=== PATIENT | male | born 1990 | race Caucasian/White ===

== ENCOUNTER 2024-02-04 17:43 | Emergency (ER) | payer SELFPAY ==
[2024-02-04 17:44] VITALS: BP 145/91; PULSE 80; PULSE 87; RESP 16; TEMP 36.9; O2SAT 100; BMI 19.3
--- NOTE | 2024-02-04 18:58 | EDS_ITS ---
HPI History of Present Illness Chief Complaint: Chest Other Detail of Chief Complaint: Multiple symptoms Informant: patient Onset/Context/Timing Onset: Weeks Context: Sudden Onset Timing: Continuous and Intermittent Quality: HPI Location: Complains of bilateral anterior chest pain Current Severity: Mild Maximum Severity: Moderate Worsened by: Feels like he cannot get a deep breath. Relieved by: Nothing Associated Symptoms Associated Symptoms: Weight loss, night sweats Narrative Narrative: Patient is a 33-year-old male who admits to marijuana use. Denies drug use. He is concerned because of bilateral chest pain. This been going on for approximately 3 weeks.'s been intermittent. There is no radiation. There is no nausea vomiting or diarrhea. There is no shortness of breath. There is no history of VTE. There is no history of recent travel, leg pain, swelling discoloration. He has no history of pneumothorax. Patient stated that his brother's arm with lower history was doing drugs because he looks thin. Prior similar symptoms: No Recent Illness/Hospitalization: No PFSH PFSH Medical History no medical history no medical history Home Medications NK 02/04/24 [History Last Taken Unknown] Allergy/AdvReac Type Severity Reaction Status Date / Time No Known Allergies Allergy Verified 02/04/24 17:50 Surgical History no surgical history no surgical history Social History (Updated 02/04/24 @ 19:[address] Yaw Larsen MD) household members: none Smoking Status: Current every day smoker ROS ROS ED Constitutional Constitutional ED: Reports sweats and weight loss; Denies chills, fever(s) or subjective Eyes Eyes: Denies blurry vision, change in vision or diplopia ENT ENT ED: Denies ear pain, rhinorrhea or sore throat Cardiovascular Cardiovascular: Reports chest pain; Denies orthopnea, palpitations, paroxysmal nocturnal dyspnea or racing heartbeat Respiratory/Chest Respiratory/Chest: Denies cough, dyspnea, dyspnea on exertion, orthopnea, paroxysmal nocturnal dyspnea or sputum Gastrointestinal Gastrointestinal: Denies abdominal pain, constipation, diarrhea, melena, nausea or vomiting Genitourinary Genitourinary ED: Denies dysuria, hematuria or urinary frequency Musculoskeletal Musculoskeletal: Denies back pain, myalgias or neck pain Integumentary Denies rash Neurologic Neurologic: Denies headache(s) or weakness Endocrine Endocrinology: Denies cold intolerance or heat intolerance Hematologic/Lymphatic Hematologic/Lymphatic: Reports systems reviewed and no addt'l complaints, except as documented EXAM Physical Exam Const Vital Signs: 02/04/24 17:44 02/04/24 17:44 02/04/24 18:43 Temperature 98.4 F 98.4 F Temperature Source Temporal Temporal Pulse Rate 87 80 Respiratory Rate 16 16 Respiratory Effort Normal Non-Labored Blood Pressure 145/91 H 145/91 H Blood Pressure Mean 109 109 Pulse Ox 100 100 Oxygen Delivery Method Room Air Room Air Positive well nourished and well developed Constitutional Narrative: Patient is thin. States has always been thin he does admit/endorse weight loss General Appearance ED: well developed, NAD and pallor; Negative for cyanotic or diaphoretic HEENT Reports moist mucous membranes HEENT Narrative: Head is atraumatic normocephalic. Ears normal. Nares patent. Posterior pharynx normal. Eyes PERRL and EOMs intact bilaterally General Eye ED: Negative for pale conjunctiva or scleral icterus Neck no lymphadenopathy, supple and no JVD Chest Wall inspection of chest normal and palpation of chest normal Resp normal respiratory effort and clear to auscultation bilaterally Cardio regular rate, regular rhythm, S1 normal heart sound, S2 normal heart sound and no murmurs GI normal to inspection, nondistended, normoactive bowel sounds, non-tender, non- distended and no masses; Negative for hepatosplenomegaly Back/Spine no CVA tenderness Thoracic Spine / Upper Back: Negative for thoracic spinal tenderness Lumbar Spine / Lower Back: Negative for lumbar spinal tenderness Extremity normal to inspection General Extremety ED: Negative for edema or tenderness General Extremity: Negative for edema Neuro oriented x3, CN's II-XII intact bilaterally and no sensory deficits noted Sensorium / Orientation: alert Sensory Exam: sensory level loss detected Psych mental status grossly normal Skin no rashes or lesions noted, no wounds and skin turgor normal General Skin Exam: elasticity normal and pallor; Negative for jaundice MDM MDM MDM Narrative Medical decision making narrative: With patient not having severe elevated blood pressure ripping chest back pain doubt dissection. Fact that he had weight loss night sweats and vague chest discomfort concern for possible malignancy. Will obtain CBC to assess for anemia and white count. Competence of metabolic panel to assess alkaline phosphatase and calcium as well as electrolytes. Chest x-ray because of chest pain and determine if there is a mass noted. ESR was obtained. This is markedly elevated due to consider autoimmune disorder versus malignancy doubt infectious cause. Lab Data Attestation: I reviewed the patient's lab results. Lab results narrative: White count is slightly elevated 14.2 thousand. There is a slight shift. Patient has mild anemia with an H&H 12.5 and 30.5 with normal indices. Comprehensive metabolic panel is unremarkable. ESR is slightly elevated 33. Labs: Laboratory Results - last 24 hr 02/04/24 19:12 WBC 14.2 H RBC 4.30 L Hgb 12.5 L Hct 38.5 L MCV 89.5 MCH 29.1 MCHC 32.5 RDW Std Deviation 44.2 H RDW Coeff of John 13.6 Plt Count 438 MPV 8.9 Immature Gran % (Auto) 0.400 Neut % (Auto) 79.2 H Lymph % (Auto) 13.3 L [place] % (Auto) 5.6 Eos % (Auto) 0.8 Baso % (Auto) 0.7 Absolute Neuts (auto) 11.2 H Absolute Lymphs (auto) 1.89 Nucleated RBC % 0 ESR 33 H Sodium 136 Potassium 4.1 Chloride 107 Carbon Dioxide 30.0 Anion Gap -1 L BUN 8 Creatinine 0.77 Estim Creat Clear Calc 127.05 Est GFR (MDRD) Af Amer 148 Est GFR (MDRD) Non-Af 122 BUN/Creatinine Ratio 10.3 Glucose 108 H Calcium 9.3 Total Bilirubin 0.30 AST 10 L ALT 17 Alkaline Phosphatase 109 Total Protein 8.1 Albumin 3.4 Globulin 4.7 H Albumin/Globulin Ratio 0.7 L Discharge Plan Triage Chief Complaint: Chest Other ED Provider: Yaw Larsen Dx/Rx/DC Orders Clinical Impression: Night sweats, Chest pain in adult, Elevated blood-pressure reading, without diagnosis of hypertension, Unexplained weight loss Instructions: ED Chest Pain, Noncardiac, ED Hypertension, To Be Confirmed Prescriptions: No Action NK Primary Care Provider: Care Physician,No Primary Referrals: Cesia Rios [Non-Staff] - 1 Week [facility] Doctor,Out of [Non-Staff] - Disposition Disposition: Home, Self Care
[2024-02-04 19:23] LABS: Absolute Lymphocyte Count 1.89 X10^3/uL (0.83-4.51); Absolute Neutrophil Count 11.2 X10^3/uL (2.0-7.7); Basophil% 0.7 % (0-1); Eosinophil# 0.11 X10^3/uL; Eosinophils% 0.8 % (0-5); Hematocrit 38.5 % (40-54); Hemoglobin 12.5 g/dL (13.0-16.5); Lymphocyte # 1.89 X10^3/ul (0.83-4.51); Lymphocyte % 13.3 % (19-41); Mean Corp Hgb Conc 32.5 g/dL (32-36); Mean Corpuscular Hgb 29.1 pg (27.0-32.0); Mean Corpuscular Volume 89.5 fL (80-94); Mean Platelet Vol. 8.9 fl (6.2-12.0); Monocyte# 0.79 X10^3/uL; Monocyte% 5.6 % (0-10); NRBC Flagged by Analyzer 0 % (0-5); Neutrophil # 11.23 X10^3/uL (2.7-7.7); Neutrophil % 79.2 % (47-70); Platelet Count 438 K/mm3 (150-450); RBC Distribution Width CV 13.6 % (11.6-14.6); RBC Distribution Width SD 44.2 fl (35.1-43.9); White Blood Count 14.2 K/mm3 (4.4-11.0)
--- NOTE | 2024-02-04 19:30 | RAD_ITS ---
STUDY: X-RAY CHEST REASON FOR EXAM: Male, 33 years old. Chest pain, night sweats, SOB, weight loss TECHNIQUE: PA and lateral COMPARISON: None. FINDINGS: The lungs are clear and expanded. There is no demonstrated pleural abnormality. Normal size heart. Normal mediastinum and jesus. Normal visualized pulmonary arteries. Normal visualized aortic arch and descending thoracic aorta. There appears to be very subtle convexity of the aorta pulmonary window possibly representing an enlarged node Normal visualized thoracic spine. Normal visualized ribs, clavicles, and shoulders. There is no demonstrated abnormality of the visualized soft tissue structures of the upper abdomen. RAD/Chest PA and Lateral IMPRESSION: No acute cardiopulmonary pathology. Cannot definitively exclude subtle left suprahilar lymph node. CT would be useful for more definitive evaluation Electronically Signed: Rayo Banks MD at 20:03 EDT ,
[2024-02-04 19:36] LABS: Erythrocyte Sedimentation Rate 33 mm/hr (0-20)
[2024-02-04 19:41] LABS: ALB/GLOB Ratio 0.7 RATIO (0.9-2.4); AST(SGOT) 10 U/L (15-37); Alanine Aminotransfer ALT/SGPT 17 U/L (16-61); Albumin, Serum 3.4 g/dL (3.2-5.0); Alkaline Phosphatase 109 U/L (45-117); Anion Gap -1 (5-15); BUN 8 mg/dL (7-18); BUN/Creat Ratio 10.3 RATIO (10-20); Calcium,Total 9.3 mg/dL (8.5-10.1); Chloride 107 mmol/L (98-107); Creatinine, Serum 0.77 mg/dL (0.70-1.30); EST Glomerular Filtration Rate 122 mL/min (>60); Est Glom Filt Rate - Afr Amer 148 mL/min (>60); Estimated Creatinine Clearance 127.05 ml/min; Globulin 4.7 g/dL (2.2-4.2); Glucose 108 mg/dL (74-106); Potassium 4.1 mmol/L (3.5-5.1); Protein, Total 8.1 g/dL (6.4-8.2); Sodium Level 136 mmol/L (136-145)
[2024-02-04 19:43] VITALS: BP 103/73; PULSE 86; RESP 16; O2SAT 98
[2024-02-04 20:26] VITALS: BP 111/61; PULSE 68; RESP 20; TEMP 37.2; O2SAT 99
== END 2024-02-04 20:27 | disposition home or self-care (01) ==
PROVIDERS: Emergency Provider Emergency Medicine; Visit Provider Emergency Medicine
DX: R07.9 Chest pain, unspecified (principal); R61 Generalized hyperhidrosis; R63.4 Abnormal weight loss; R03.0 Elevated blood-pressure reading, without diagnosis of hypertension; F17.200 Nicotine dependence, unspecified, uncomplicated
CPT/HCPCS: 71046; 80053; 85025; 85652; 99284; A4216

== ENCOUNTER → 2024-03-03 | Outpatient (CLI) | payer SELFPAY ==
[2024-03-03 12:10] LABS: Erythrocyte Sedimentation Rate 44 mm/hr (0-20)
[2024-03-03 12:12] LABS: Absolute Lymphocyte Count 3.37 X10^3/uL (0.83-4.51); Basophil# 0.15 X10^3/uL; Basophil% 0.9 % (0-1); Eosinophil# 0.25 X10^3/uL; Eosinophils% 1.5 % (0-5); Hematocrit 40.5 % (40-54); Hemoglobin 12.8 g/dL (13.0-16.5); Lymphocyte # 3.37 X10^3/ul (0.83-4.51); Mean Corp Hgb Conc 31.6 g/dL (32-36); Mean Corpuscular Hgb 28.7 pg (27.0-32.0); Mean Corpuscular Volume 90.8 fL (80-94); Monocyte# 1.02 X10^3/uL; NRBC Flagged by Analyzer 0 % (0-5); Neutrophil # 11.99 X10^3/uL (2.7-7.7); Platelet Count 529 K/mm3 (150-450); RBC Distribution Width SD 46.6 fl (35.1-43.9); Red Blood Count 4.46 M/mm3 (4.6-6.2); White Blood Count 16.9 K/mm3 (4.4-11.0)
[2024-03-03 12:21] LABS: Hemoglobin A1c 5.3 % (3.8-5.6)
[2024-03-03 12:28] LABS: ALB/GLOB Ratio 0.7 RATIO (0.9-2.4); AST(SGOT) 16 U/L (15-37); Alanine Aminotransfer ALT/SGPT 20 U/L (16-61); Albumin, Serum 3.4 g/dL (3.2-5.0); Alkaline Phosphatase 113 U/L (45-117); Anion Gap 5 (5-15); BUN 7 mg/dL (7-18); BUN/Creat Ratio 8.4 RATIO (10-20); Calcium,Total 9.8 mg/dL (8.5-10.1); Chloride 102 mmol/L (98-107); Creatinine, Serum 0.83 mg/dL (0.70-1.30); EST Glomerular Filtration Rate 112 mL/min (>60); Est Glom Filt Rate - Afr Amer 136 mL/min (>60); Ferritin 132 ng/mL (26-388); Globulin 5.1 g/dL (2.2-4.2); Glucose 114 mg/dL (74-106); Iron 21 ug/dL (65-175); Iron Binding Capacity,Total 283 ug/dL (250-450); PERCENT IRON SATURATION 7.4 % (15.0-55.0); Potassium 3.8 mmol/L (3.5-5.1); Protein, Total 8.5 g/dL (6.4-8.2); Rheumatoid Factor < 10.0 IU/mL (<15); Sodium Level 137 mmol/L (136-145); Thyroid Stim Hormone (TSH) 1.34 uIU/mL (0.358-3.74)
[2024-03-03 12:55] LABS: HIV - WCH Non-Reactive (Nonreactive); Vitamin B12 399 pg/mL (211-911)
[2024-03-04 15:08] LABS: Lyme Scn Total Ab w/Rflx Negative (Negative)
[2024-03-07 12:08] LABS: ANTINUCLEAR ANTIBODIES DIRECT Negative (Negative); Vitamin D 1,25-Dihydroxy 30.3 pg/mL (24.8-81.5)
== END | disposition home or self-care (01) ==
LOC: LAB 11:18
PROVIDERS: PCP Nurse Practitioner Family; Referring Provider Nurse Practitioner Family; Visit Provider Nurse Practitioner Family
DX: R63.4 Abnormal weight loss (principal); R61 Generalized hyperhidrosis; D64.9 Anemia, unspecified; M25.50 Pain in unspecified joint
CPT/HCPCS: 36415; 80053; 82607; 82652; 82728; 83036; 83540; 83550; 84443; 85025; 85652; 86038; 86140; 86431; 86618; 86703

== ENCOUNTER → 2024-06-14 | Outpatient (CLI) | payer MEDICAID, SELFPAY ==
--- NOTE | 2024-06-14 13:53 | CT_ITS ---
STUDY: CT CHEST WITH CONTRAST REASON FOR EXAM: Male, 33 years old. ABNORMAL WEIGHT LOSS. Left upper chest pain. Shortness of breath. RADIATION DOSAGE (If Supplied By Facility): CTDIvol = ( 10.31 ) mGy, DLP = ( 301.07 ) mGycm TECHNIQUE: Transaxial imaging was performed following intravenous administration of IV 100mL Isovue-300. Individualized dose optimization techniques were used for this CT. COMPARISON: No relevant priors. FINDINGS: CHEST The lungs are normal. There is no demonstrated pleural abnormality. Normal heart and pericardium. Soft tissue prominence seen in the anterior mediastinum suggestive of adenopathy. This extends into the base of the great vessels of the neck. Lymphadenopathy should be ruled out. Normal hilar regions. Normal unenhanced pulmonary arteries. Normal aorta arch and descending thoracic aorta. Normal osseous structures. There is no demonstrated abnormality of the visualized upper abdomen. CT/Chest WITH Contrast IMPRESSION: Mediastinal lymphadenopathy as described. Lymphoma should be ruled out. Electronically Signed: Chidi Maxwell MD at 15:07 EDT ,
== END | disposition home or self-care (01) ==
LOC: CT 13:50
PROVIDERS: Referring Provider Nurse Practitioner Family; Visit Provider Nurse Practitioner Family
DX: R63.4 Abnormal weight loss (principal); R61 Generalized hyperhidrosis; R93.89 Abnormal findings on diagnostic imaging of other specified body structures
CPT/HCPCS: 71260; Q9967

== ENCOUNTER → 2024-07-29 | Outpatient (CLI) | payer MEDICAID, SELFPAY ==
[2024-07-29] VITALS (12 sets, daily range): BP systolic 113–131; BP diastolic 51–73; PULSE 65–78; RESP 13–15; TEMP 36.6; O2SAT 97–100; BMI 20.7
--- NOTE | 2024-07-29 | IMM_PTH ---
PATIENT: ELROY COLVIN LOC: CT U#:[id number] AGE/SX: 33/M ROOM: RE07/29/[address]: Dr. Sorin Machado MD : 1990 BED: DIS: 07/29/2024 SPEC #: [id number] RECD: 08/01/24 10:39 STATUS: JESSICA REQ #: [id number] GRETCHEN: 07/29/24 00:[address]: Sorin Machado DEPT: IMMUNOHISTOCHEMISTRY RECD BY: Amos Cardenas ENTERED: 08/01/24 10:40 SP TYPE: IMMUNO OTHR DR: No Primary Care Phys Tissues: Lymph node, NOS Procedures: CD15 (add) CD20 (add) CD30 (add) CD45 (add) CD5 (add) CD79A (add) KI-67 (add) CD3 (initial) PHYSICIAN & INSTITUTION [place] [id number] SPECIMEN INFORMATION: Tissue Source: Lymph node biopsy Clinical Info: Lymphadenopathy Specimen Number: [id number] CPT code: 28758,12469i6 METHODOLOGY: Deparaffinized sections of prefer/formalin-fixed tissue or PAP/DQ stained slides are incubated with monoclonal/polyclonal antibodies/oligonucleotide probes. Localization is made via biotin free immunoperoxidase method. Appropriate controls are performed and reacted as expected. Results on target cell population are indicated in the following table: RESULTS: ANTIBODY / CLONE RESULT CD3 (PS1) negative * CD5 (SP10) negative * CD20 (L26) negative * CD45 (RP2/18) negative * CD79a (11E3) negative * CD15 (MMA) positive CD30 (Christopher-H2) positive Ki-67 (30-9) positive, low * Positive in background lymphocytes These tests were developed and their performance characteristics determined by [facility]. They may not have been cleared or approved by the U.S. Food and Drug Administration. The FDA has determined that such clearance or approval is not necessary. The above immunohistochemical/dualISH markers are ordered and reviewed by the Pathologist. INTERPRETATION: Left chest lymph node, CT guided core biopsy: Hodkgin lymphoma, nodular sclerosis type. See comment. COMMENT: Background lymphocytes are polytypic in nature. Case has been reviewed in consultation with Dr. Woodward who concurs with the above diagnosis. IDC:IVAN Machado 08/02/2024
[2024-07-29 08:58] LABS: Absolute Lymphocyte Count 2.61 X10^3/uL (0.83-4.51); Absolute Neutrophil Count 15.7 X10^3/uL (2.0-7.7); Basophil# 0.12 X10^3/uL; Basophil% 0.6 % (0-1); Eosinophil# 0.06 X10^3/uL; Eosinophils% 0.3 % (0-5); Hematocrit 41.1 % (40-54); Hemoglobin 13.3 g/dL (13.0-16.5); Lymphocyte # 2.61 X10^3/ul (0.83-4.51); Lymphocyte % 13.3 % (19-41); Mean Corp Hgb Conc 32.4 g/dL (32-36); Mean Corpuscular Hgb 28.6 pg (27.0-32.0); Mean Corpuscular Volume 88.4 fL (80-94); Mean Platelet Vol. 8.4 fl (6.2-12.0); Monocyte# 1.12 X10^3/uL; Monocyte% 5.7 % (0-10); NRBC Flagged by Analyzer 0 % (0-5); Neutrophil # 15.66 X10^3/uL (2.7-7.7); Neutrophil % 79.6 % (47-70); Platelet Count 493 K/mm3 (150-450); RBC Distribution Width CV 13.7 % (11.6-14.6); RBC Distribution Width SD 44.4 fl (35.1-43.9); Red Blood Count 4.65 M/mm3 (4.6-6.2); White Blood Count 19.7 K/mm3 (4.4-11.0)
[2024-07-29 09:12] LABS: International Normalized Ratio 1.1; Prothrombin Time (Protime)PT. 13.7 SECONDS (11.7-14.9)
[2024-07-29 09:13] LABS: Partial Thromboplast Time 27.9 Seconds (24.1-36.2)
[2024-07-29] MEDS: 0.9% Normal Saline (250mL Bag) 250 ML 15 ML IV (09:40)
[2024-07-29] MEDS: Midazolam 2 MG/2 ML Syringe IV ×3 (09:43→09:54)
[2024-07-29] MEDS: fentaNYL 100 MCG/2 ML Ampul IV (09:45)
[2024-07-29] MEDS: Lidocaine 2% (20 ml mdv) 20 ML Vial INFILT (09:55)
--- NOTE | 2024-07-29 10:00 | ASPIGT_PTH ---
PATIENT: ELROY COLVIN LOC: CT U#:[id number] AGE/SX: 33/M ROOM: RE07/29/[address]: Dr. Sorin Machado MD : 1990 BED: DIS: 07/29/2024 SPEC #: [id number] RECD: 07/29/24 10:30 STATUS: JESSICA DEREK #: [id number] GRETCHEN: 07/29/24 10:[address]: Sorin Machado DEPT: SURGICAL PATHOLOGY RECD BY: Ev Bradley ENTERED: 07/29/24 11:13 SP TYPE: ASP RAD OTHR DR: No Primary Care Phys Tissues: LYMPH NODE BIOPSY Procedures: FNA Specimen Adequacy Special Stain Group II Surgery Specimen Level IV Imprint (control) HEADER OPERATION: CT guided lymph node biopsy - left chest PRE-OP DIAGNOSIS: Lymphadenopathy TISSUE SUBMITTED: 18 gauge MICROSCOPIC DIAGNOSIS Midiastinal mass, CT guided core biopsy: Hodgkin lymphoma, nodular sclerosis type. See comment. SJ.mr 08/01/2024 COMMENT The specimen is evaluated at the time of biopsy by Dr. Diego. Immediate Evaluation = Adequate for evaluation. Immunohistochemistry ([id number]) supports the above diagnosis. Flow cytometry study from [facility] show no evidence of B-cell or T-cell lymphoma. Complete report is viewable in the patient's EMR. Case has been reviewed in consultation with Dr. Woodward who concurs with the above diagnosis. IDC:AM MICROSCOPIC DESCRIPTION Slides are reviewed. GROSS DESCRIPTION Received in fixative is one container labeled with the patient's name and designated Midiastinal mass. The specimen consists of multiple elongated fragments of bailon soft tissue measuring in aggregate 1.5 x 0.2 x 0.1cm. The entire specimen is submitted in one cassette. Two touch imprints are prepared at the time of core biopsy. One core is submitted for flow cytometric study. 07/29/2024 TC:0 CPT:28348,94989
--- NOTE | 2024-07-29 10:16 | PCM.OP.PRO ---
Procedure Report Date of Procedure: 07/29/24 Assessment & Plan Assessment/Plan (1) Mediastinal lymphadenopathy: PLAN: PROCEDURE: CT GUIDED CORE LYMPH NODE BIOPSY ORDERING PROVIDER: Dr. Machado INDICATION: Male, 33 years old. Enlarged thoracic lymph node PROVIDER: SANDHYA Elizalde CONSENT: Written informed consent was obtained having explained the risks, benefits and alternatives in detail with the patient who accepted the risks and agreed to proceed. Laboratory review and clinical assessment was performed. PRE-PROCEDURE SEDATION ASSESSMENT: Current history and physical dictated by referring physician and reviewed. No clinical changes since date of exam. Patient has a Mallampati Score of Class 1 and ASA Class of 2. PROCEDURAL SEDATION PROTOCOL: The Drugs used were: 3 mg Versed, IV, and 50 mcg Fentanyl, IV. The sedation time was: Starting at 9:43 AM and terminated at 10:06 AM. The procedural sedation protocol was independently monitored by the department nurse. RADIATION DOSAGE (If Supplied By Facility): CTDIvol = 15.97 mGy, DLP = 247.42 mGycm Individualized dose optimization techniques were used for this CT. TECHNIQUE The patient was placed in a supine position. A noncontrast CT was performed to localize the lesion in the thoracic chest. The skin surface was prepped with chlorhexidine and draped in a sterile fashion. 2% lidocaine was used for local anesthesia. Using CT guidance, an 18-gauge coaxial biopsy device was advanced to the periphery of the lesion. A total of 6 core specimens were obtained. Specimens were microscopically reviewed by pathology in the CT suite and placed in formalin solution, as well as RPMI. The biopsy needle was removed and a sterile dressing was applied to the biopsy site. The patient tolerated the procedure well without adverse event. A negative biopsy does not exclude malignancy. Further imaging or clinical followup based on patient condition and degree of clinical suspicion for malignancy. Suggest rebiopsy, if biopsy results do not match with clinical scenario. IMPRESSION: CT directed core needle biopsy of the thoracic lymph node using CT image guidance with image documentation as described. Pathology results are pending. Procedural Sedation protocol utilized with independent monitoring by the department nurse. Procedures Radiology Radiology CT Procedures: 67307 Biopsy Lymph Node/gland/etc Multi [facility] Codes Radiology Radiology CT Procedures: 04509-27 CT guidance parenchymal tissue
== END | disposition home or self-care (01) ==
LOC: CT 08:46
PROVIDERS: Referring Provider Internal Medicine Hematology & Oncology; Visit Provider Internal Medicine Hematology & Oncology
DX: C81.10 Nodular sclerosis Hodgkin lymphoma, unspecified site (principal)
CPT/HCPCS: 38505; 36415; 77012; 85025; 85610; 85730; 88172; 88305; 88313; 88341; 88342; 99156; J7050

== ENCOUNTER → 2024-08-10 | Outpatient (CLI) | payer MEDICAID, SELFPAY ==
--- NOTE | 2024-08-10 13:52 | ECHODONC_ITS ---
Reason For Study: Encounter for trheraputic drug level monitoring Procedure This was a 2D Doppler, Color Flow transthoracic echocardiogram. Myocardial strain analysis was performed in this exam to aid in the assessment of cardiac function. Exam performed in department. Left Ventricle Normal LV size. Left ventricular systolic function is normal. The left ventricular ejection fraction is 65 %. No regional wall motion abnormalities noted. Right Ventricle Normal RV size. Normal systolic function. Atria Normal left atrium. Normal right atrium. Mitral Valve Normal mitral valve. Tricuspid Valve Normal tricuspid valve. Aortic Valve Trisinus/trileaflet aortic valve. Pulmonic Valve Normal pulmonic valve. Great Vessels Normal aortic root. The pulmonary artery is normal size. Normal inferior vena cava. Pericardium/Pleural No pericardial effusion. MMode/2D Measurements & Calculations LVIDd: 5.3 cm IVSd: 0.71 cm Ao root diam: 2.8 cm LVIDs: 3.5 cm LVPWd: 0.86 cm RVDd: 3.4 cm FS: 34.1 % LAV(MOD-bp): 42.3 ml LVAd ap4: 32.2 cm2 LVAd ap2: 35.8 cm2 LAV(MOD-bp) Indexed: 21.9 ml/m2 LVLd ap4: 8.6 cm LVLd ap2: 9.4 cm LAV(MOD-sp2): 46.4 ml EDV(MOD-sp4): 99.0 ml EDV(MOD-sp2): 114.2 ml LAV(MOD-sp4): 34.5 ml EDV(sp4-el): 102.1 ml EDV(sp2-el): 115.5 ml LVAs ap4: 17.4 cm2 LVAs ap2: 17.4 cm2 LVLs ap4: 7.0 cm LVLs ap2: 7.0 cm ESV(MOD-sp4): 37.0 ml ESV(MOD-sp2): 36.9 ml ESV(sp4-el): 36.6 ml ESV(sp2-el): 36.5 ml EF(MOD-sp4): 62.6 % EF(MOD-sp2): 67.7 % EF(sp4-el): 64.1 % SV(MOD-sp4): 62.0 ml SV(MOD-sp2): 77.3 ml SV(sp4-el): 65.4 ml LA dimension(2D): 3.2 cm TAPSE: 2.9 cm LA A4 area: 14.2 cm2 Time Measurements MV dec time: 0.22 sec Doppler Measurements & Calculations MV E max [place]: 123.9 cm/sec Lat Peak E' [place]: 17.9 cm/sec Med Peak E' [place]: 16.2 cm/sec MV A max [place]: 50.1 cm/sec E/E' lat: 6.9 E/E' med: 7.7 MV E/A: 2.5 MV V2 max: 142.8 cm/sec MV P1/2t max [place]: 137.5 cm/sec Ao V2 max: 133.2 cm/sec MV max P.2 mmHg MV P1/2t: 70.0 msec Ao max P.1 mmHg MV V2 mean: 68.7 cm/sec MV dec slope: 575.0 cm/sec2 Ao V2 mean: 93.7 cm/sec MV mean P.3 mmHg Ao mean P.0 mmHg MV V2 VTI: 31.8 cm MVA(P1/2t): 3.1 cm2 Ao V2 VTI: 30.4 cm AV (velocity ratio): 0.83 LV V1 max: 119.5 cm/sec PA V2 max: 120.4 cm/sec LV V1 max P.7 mmHg PA V2 mean: 91.6 cm/sec LV V1 mean P.2 mmHg LV V1 mean: 84.4 cm/sec LV V1 VTI: 25.2 cm ECHO/ONC Echo Complete Interpretation Summary Normal LV size. Left ventricular systolic function is normal. The left ventricular ejection fraction is 65 %. The global longitudinal strain is normal. The global longitudinal strain = -20. 1 % (normal). Structurally normal valves. Ordering Physician: Radha Campbell Referring Physician: MIKE PCP Performed By: Evelyn Sauer, LEW, RVT
== END | disposition home or self-care (01) ==
LOC: CVS 13:51
PROVIDERS: Referring Provider Nurse Practitioner Family; Visit Provider Nurse Practitioner Family
DX: Z51.81 Encounter for therapeutic drug level monitoring (principal); C81.90 Hodgkin lymphoma, unspecified, unspecified site; Z79.899 Other long term (current) drug therapy
CPT/HCPCS: 93306; 93356

== ENCOUNTER 2024-08-18 17:08 | Outpatient (RCR) | payer MEDICAID, SELFPAY | END 2024-08-25 23:59 | LOC: NS 17:08 | PROVIDERS: Visit Provider Internal Medicine Hematology & Oncology | DX: Z71.3 Dietary counseling and surveillance (principal); C81.90 Hodgkin lymphoma, unspecified, unspecified site; R59.0 Localized enlarged lymph nodes; R68.89 Other general symptoms and signs; Z51.11 Encounter for antineoplastic chemotherapy | CPT/HCPCS: 97802 ==

== ENCOUNTER 2024-08-19 10:34 | Day surgery (SDC) | payer MEDICAID, SELFPAY ==
[2024-08-19] VITALS (8 sets, daily range): BP systolic 108–124; BP diastolic 63–96; PULSE 58–79; RESP 16–18; TEMP 36.2–37; O2SAT 97–99; BMI 20.2
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
[2024-08-19] MEDS: Cefazolin 2 GM in Syringe IV (12:00)
[2024-08-19] MEDS: Bupivacaine Mpf 0.5% 30 ML VIAL (12:34)
[2024-08-19] MEDS: Lidocaine 1% /Epi 1:100 (20ml) 20 ML Vial (12:35)
[2024-08-19] MEDS: 0.9% Normal Saline (Pres. free 10 ML Vial (12:36)
--- NOTE | 2024-08-19 12:50 | DCINST_ITS ---
Discharge Instructions Diet Discharge Diet: Light diet - advance as tolerated Activity Discharge Activity: Return to Normal Activity and May Shower May shower in (days): 1 Dressing / Incision Call your doctor if your incision/area has: Continuous Slow Oozing, Sudden Increased Bleeding, Increased Pain/ Swelling, Increased Redness, Foul Smelling Discharge and Swelling at the incision site Call your doctor if you observe: Fever of 101 or Higher, Shortness of breath and Chest pain Remove Dressing in: 5 days Cleanse incision/area with: Soap & Water Follow Up Care Test Results: Test results from this visit will be discussed in further detail at your follow- up appointment, if applicable. Discharge Plan Admission Primary Reason for Your Visit: Port placement surgery Attending Provider: Sinan Harrell Primary Care Provider: Radha Baires Primary Instructions Print Language: Gibraltarian Discharge Orders/Prescriptions Prescriptions: New oxycodone-acetaminophen [Percocet] 5-325 mg tablet 1 tab PO Q8H PRN (Reason: pain) 3 Days Qty: 5 0RF Continued ibuprofen 200 mg capsule 400 mg PO Q6H PRN (Reason: fever or pain) Referrals / Follow Up: Care Physician,No Primary [Primary Care Provider] - Disposition Disposition (needs filled in before D/C Order can be placed): Home, Self Care
--- NOTE | 2024-08-19 12:50 | PCM.POST.ANE ---
Anesthesia: Postop Eval I Current Vital Signs Temperature: 97.1 F Pulse Rate: 79 Blood Pressure: 116/96 Respiratory Rate: 18 Pulse Ox: 98 Oxygen Delivery Method: Room Air Assessment Airway patent: Yes Spontaneous unlabored respirations: Yes Mental status: Awake and Calm nausea: No Vomiting: No Anesthesia Complication: No Fluid Hydration Crystalloid volume administer (ml): 10 Total IV fluid infused: 10 Progress Note Anesthesia document: Postop Eval 1 completed: Yes
--- NOTE | 2024-08-19 12:55 | PCM.OPRPT ---
Problems Associated Problem List Diagnoses (1) Hodgkin lymphoma: Operative Report (Standard) Operative Information Surgery/Procedure Performed: Left subclavian Mediport placement with C arm Surgeon: Sinan Harrell Date of Procedure: 08/19/24 Procedure Start Time: 12:16 Procedure Stop Time: 12:44 Pre-Operative Diagnosis: Lymphoma Post-Operative Diagnosis: Lymphoma Select all DRAINS/GRAFTS/IMPLANTS that apply: Implanted device Implanted device details: 8 Syriac PowerPort Type of Anesthesia: MAC/Supplemental/Local Estimated Blood Loss: 3 mL Fluids Replaced: None Specimen collected: No Description of surgery: The patient is a 33-year-old male recently seen through the office with a recent new diagnosis of Hodgkin's lymphoma. His treating oncology team is recommending chemotherapy. He was seen in my office to discuss Mediport placement to help facilitate the chemotherapy process. We do lengthy discussion regarding the port itself as well as the risks benefits and alternatives to port placement surgery. He wished to proceed. Patient was brought to the operating room today following informed consent. Preoperative antibiotics were given. A timeout was performed. He was placed supine on the operative table with arms outstretched on arm boards. MAC anesthesia was then induced. An axillary roll was placed between the shoulder blades and he was placed in mild Trendelenburg positioning. The area was then prepped and draped in the usual sterile manner. Local anesthetic was injected into the left periclavicular area. Using the supplied needle and syringe, I was able to gain access to the left subclavian vein on the second pass. The blood return was a dark red, nonpulsatile, venous appearing blood return. The guidewire was then advanced through the aperture and the needle. The guidewire was then secured to the drapes using a curved hemostat. C-arm was then brought in to confirm appropriate placement of the guidewire and the venous side of the circulation and within the vena cava. Next a marking pen was then used to indicate the site of the incision for the port pocket. Additional local anesthetic was injected. #15 blade was then used to make a skin incision at this location as well as a small skin incision at the entry point of the guidewire. Bovie electrocautery was then used dissect down through subcutaneous tissues down to the level of the pectoralis fascia. At this level a subcutaneous pocket was created by the use of blunt finger dissection. Next the tubing was connected to the tunneling device and the tubing was tunneled into the larger incision and up and out through the smaller incision. This was trimmed to about 21 cm and was then attached to the port itself. The port was then affixed to the underlying chest wall using Prolene suture x 2. This laid nicely. Next the dilator and tear-away sheath were then advanced over the guidewire. The guidewire and dilator were then removed thus leaving the sheath in place. The free end of the tubing was then threaded down the sheath and the sheath was then extracted while the tubing was advanced. Once performed the port ino and flushed easily with injectable saline on a Colon needle. C arm was brought into again confirmed good positioning of the port and tubing. Once this was confirmed heparin flush was then instilled through the port. The incision was then closed in layers. 3-0 Vicryl was used to reapproximate the subdermal layer and then 5-0 Vicryl was used to close both skin incisions at the skin level. Skin glue was applied as dressing along with a sterile 2 x 2 and a large OpSite. He was awakened from anesthesia and taken to PACU in good condition. Surgical Findings: See operative note Tassel Snipper transportation equipment painter: No Complications Complications: No Admit VTE Documentation VTE Present on Admission: No Procedures Cardiovascular CF Procedures [id number]: [id number] Insert tunneled cv cath
--- NOTE | 2024-08-19 13:00 | RAD_ITS ---
INDICATION: port placement EXAMINATION/TECHNIQUE: X-RAY - XR Chest 1 View COMPARISON: Prior study dated: 02/04/2024 FINDINGS: LINES/DEVICES: Right-sided Port-A-Cath with its tip in the superior vena cava. LUNGS: No consolidation, edema or effusion. No pneumothorax. MEDIASTINUM AND CARDIOVASCULAR STRUCTURES: Cardiac silhouette not enlarged. Central airways and mediastinal contour are unremarkable. The left hilum is less prominent than the previous exam. The mediastinum and hilar regions are better evaluated by CT scan. BONES AND SOFT TISSUES: Unremarkable. RAD/CXR for Line Placement IMPRESSION: No radiographic evidence of acute cardiopulmonary disease. Electronically Signed: Jose Goff MD at 13:19 EDT ,
--- NOTE | 2024-08-19 16:07 | POSTOPAN2_ITS ---
Anesthesia Postop Eval I Sum Postop Eval Completion status Anesthesia document: Postop Eval 1 completed: Yes Anesthesia Postop Eval I Summary Anesthesia Postop Eval I Summary: Anesthesia Postop Eval I: Assessment Summary Airway patent Yes 08/19/24 12:51 LEAN MANUFACTURING COORDINATOR.[email or web address] Spontaneous unlabored Yes 08/19/24 12:51 LEAN MANUFACTURING COORDINATOR.SCHR respirations Mental status Awake,Calm 08/19/24 12:51 LEAN MANUFACTURING COORDINATOR.SCHR nausea No 08/19/24 12:51 LEAN MANUFACTURING COORDINATOR.SCHR Vomiting No 08/19/24 12:51 LEAN MANUFACTURING COORDINATOR.SCHR Anesthesia Postop Eval I: Fluid Summary Crystalloid volume administer 10 08/19/24 12:51 LEAN MANUFACTURING COORDINATOR.SCHR (ml) Colloids volume administered ( ml) Blood Product volume administered (ml) Total IV fluid infused 10 08/19/24 12:51 LEAN MANUFACTURING COORDINATOR.SCHR Anesthesia Postop Eval I: Summary Notes Anesthesia Complication No 08/19/24 12:51 LEAN MANUFACTURING COORDINATOR.SCHR Anesthesia Complication Comment: Post-operative progress note Anesthesia: Postop Eval II Evaluation Mental status: Awake and Calm Pain Level: 1 nausea: No Vomiting: No Complications Anesthesia Complication: No
--- NOTE | 2024-08-19 16:07 | PCM.POSTANE2 ---
Anesthesia Postop Eval I Sum Postop Eval Completion status Anesthesia document: Postop Eval 1 completed: Yes Anesthesia Postop Eval I Summary Anesthesia Postop Eval I Summary: Anesthesia Postop Eval I: Assessment Summary Airway patent Yes 08/19/24 12:51 UTILITY LOCATE TECHNICIAN.SCHR Spontaneous unlabored Yes 08/19/24 12:51 UTILITY LOCATE TECHNICIAN.SCHR respirations Mental status Awake,Calm 08/19/24 12:51 UTILITY LOCATE TECHNICIAN.SCHR nausea No 08/19/24 12:51 UTILITY LOCATE TECHNICIAN.SCHR Vomiting No 08/19/24 12:51 UTILITY LOCATE TECHNICIAN.SCHR Anesthesia Postop Eval I: Fluid Summary Crystalloid volume administer 10 08/19/24 12:51 UTILITY LOCATE TECHNICIAN.SCHR (ml) Colloids volume administered ( ml) Blood Product volume administered (ml) Total IV fluid infused 10 08/19/24 12:51 UTILITY LOCATE TECHNICIAN.SCHR Anesthesia Postop Eval I: Summary Notes Anesthesia Complication No 08/19/24 12:51 UTILITY LOCATE TECHNICIAN.SCHR Anesthesia Complication Comment: Post-operative progress note Anesthesia: Postop Eval II Evaluation Mental status: Awake and Calm Pain Level: 1 nausea: No Vomiting: No Complications Anesthesia Complication: No
== END 2024-08-19 13:43 | disposition home or self-care (01) ==
LOC: SDC 10:35 → AC 10:35
PROVIDERS: Referring Provider Surgery; Visit Provider Surgery
PROC: (CPT 36561; principal; 2024-08-19 11:45)
DX: Z45.2 Encounter for adjustment and management of vascular access device (principal); C81.18 Nodular sclerosis Hodgkin lymphoma, lymph nodes of multiple sites; F17.210 Nicotine dependence, cigarettes, uncomplicated; Z79.899 Other long term (current) drug therapy
CPT/HCPCS: 36561; 71045; 77001; A4216; C1788; J2405; J3490

== ENCOUNTER → 2024-11-18 | Outpatient (CLI) | payer MEDICAID, SELFPAY ==
--- NOTE | 2024-11-18 17:00 | RAD_ITS ---
STUDY: X-RAY CHEST REASON FOR EXAM: Male, 34 years old. Chest discomfort. TECHNIQUE: Frontal and lateral views of the chest. COMPARISON: August 19, 2024 FINDINGS: Stable left subclavian catheter. The lungs are clear and expanded. There is no demonstrated pleural abnormality. Normal size heart. Normal mediastinum and jesus. Normal visualized pulmonary arteries. Normal visualized aortic arch and descending thoracic aorta. Normal visualized thoracic spine. Normal visualized ribs, clavicles, and shoulders. There is no demonstrated abnormality of the visualized soft tissue structures of the upper abdomen. RAD/Chest PA and Lateral IMPRESSION: Stable chest with no acute or emergent finding. Electronically Signed: Sebastian Oviedo MD at 10:29 [facility] ,
== END | disposition home or self-care (01) ==
LOC: LAB 16:50 → RAD 16:51
PROVIDERS: Referring Provider Internal Medicine Hematology & Oncology; Visit Provider Internal Medicine Hematology & Oncology
DX: C81.18 Nodular sclerosis Hodgkin lymphoma, lymph nodes of multiple sites (principal); R07.89 Other chest pain
CPT/HCPCS: 71046

== ENCOUNTER 2025-03-07 10:00 | Outpatient (RCR) | payer MEDICAID, SELFPAY ==
--- NOTE | 2025-02-09 13:51 | HP.PTEVAL ---
Patient's Visit Information Visit Information Visit Information: ELROY COLVIN is a 34 year old M referred to Physical Therapy by MEKHI Johnston with a diagnosis of general weakness, Nodular sclerosis Hodkins lymphoma. Date of Evaluation: 02/09/25 Physical Therapist: Ismael Pal DPT Visit Plan Frequency: 1x/Week Duration: 6 Weeks Plan: I gave the patient core, BUE and BLE strengthening exercises to complete at home today. Pt. is to complete on his own for the next 2-3 weeks then follow up to progress. Subjective Subjective: Pt. is is here today for his initial evaluation with diagnosis of Nodular sclerosis Hodkins lymphoma, lymph nodes and multiple sites with subsequent general weakness. Pt. reports being able to complete most of his day to day work, but has noticed increased difficulty with certain activities. He has been having many cramps in legs and hands. He has been increasing his water intake and potassium, but still has issues. He reports having difficulty with lifting and with increased LE weakness with getting up/down and squatting. Pt. is sleeping okay. He likes to work on cars and attend his alejandra activities and [employer] activities, but has refrained due to feeling week. Pt. is hopeful to get exercises to work on progressive strengthening in order to get back to all previous levels without issues. Objective Objective: POSTURE: PT. has normal posture in stance PALPATION: Pt. has no issues with palpation of BUE and BLEs. ROM: Pt. has good ROM throughout BLEs and lumbar spine. RLE: knee: ext 54.1#, flex 27.8#; hip: flex 32.7#, abd 49.5# LLE:, knee: ext 38.4#, flex 16.7#; hip: flex 40#, abd 50.6# RUE: shoulder flex 33.7#, abd 35.7# LUE: shoulder: flexion 34.0#, abd 35.0# electrical project engineer R: 55# dominant hand, L 95# GAIT: Pt. has normal gait pattern. STAIRS: Normal without issues without use of railings. Balance/Special Test Scores Lower Extremity Functional Score: 75 30 Second Chair Rise Test Seconds: 24 6 Minute Walk Test: 1760 feet mild shortness of breath Goals Goal 1:: LTG: Pt. to be I with HEP. Goal Time Frame: 4-6 Weeks Goal 2:: LTG: Pt. to have increased strength throughout BLEs and BUEs by 10# throughout. Goal Time Frame: 6-8 Weeks Goal 3:: LTG: Pt. to complete all activities in garage and recreational activities. Goal Time Frame: 4-6 Weeks Rehabilitation Potential Physical Therapy Diagnosis: Pt. has signs and symptoms consistent with Nodular sclerosis Hodkins lymphoma and subsequent generalized weakness. Pt. is overall doing well, but would benefit from some guided strengthening in order to get back to all previous levels of functional. Rehabilitation Potential: Excellent Anticipated Interventions Patient/Client Instruction: Educate patient on: Condition, Plan of Care, Risk Factors and Benefits of Fitness Program For the Purpose of:: To improve decision making, To facilitate caregiver knowledge, To improve self management, To prevent re-injury and To improve ability to perform tasks related to life management Therapeutic Exercise to Include: Strength training, Power training, Endurance training and Flexibilty training For the Purpose of:: To improve muscle performance and motor function, To improve ability to perform ADL's and To increase tolerance to activity/condition/position Text: Thank you for the opportunity to evaluate your patient. For Medicare and Medicare HMO plans, please review the plan of care and approve it. It will need to be FAXED BACK to us at [phone] for Medicare purposes. For Medicare only, by signing this I certify the plan of care. Please let me know if there are questions or concerns regarding this plan of care. Physician Signature: Date:
--- NOTE | 2025-03-07 10:44 | HP.PTDCSUM ---
Discharge Summary D/C summary: It has been my pleasure to treat ELROY COLVIN referred by MEKHI Johnston, with the diagnosis of general weakness, Nodular sclerosis Hodkins lymphoma for a total of 2 visit(s). Discharge Date: 03/07/25 Please see the following information for a summary of their discharge status. Subjective Subjective: Pt. is overall doing much better. He reports that he is back to most activities. He is helping his friend remodel his bathroom as well. He reports being able to throw with his nephews as well. Pt. reports being 75% better overall. Overall Improvement % Improvement: 75 Objective Objective/Function: MMT: Pt. has full strength of BLEs and BUEs and symmetrical. No pain with all testing. Pt. was able to complete sit to stand with 20# KB x24 in 30 seconds Pt. was able to push 25# OH in either UE Pt. was able to run up the stairs without use of HR with issues. he was able to push/pull sled with 100# without issues. He is back to most of his home activities. 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 He has been able to complete all daily activities. He is able to complete all activities at this point in time. I talked to him about daily exercise and strenuous exercise x3 day per week. Pt. is in agreement. He will be DC from PT at this point in time. Goals Goal 1:: LTG: Pt. to be I with HEP. Goal Progress: Goal Met Goal 2:: LTG: Pt. to have increased strength throughout BLEs and BUEs by 10# throughout. Goal Progress: Goal Met Goal 3:: LTG: Pt. to complete all activities in garage and recreational activities. Goal Progress: Goal Met Plan Plan: Pt. to be DC from PT at this point in time. D/C Information d/c sentence: If there are questions or concerns regarding this patient's physical therapy, please feel free to call me at [phone]. Thank you for the referral of this patient. Sincerely, Ismael Pal, DPT Balance/Gait/Functional tests Balance/Special Test Scores Lower Extremity Functional Score: 80 30 Second Chair Rise Test Seconds: 24 6 Minute Walk Test: 1990 feet no issues Improvement % Improvement: 75
== END 2025-03-07 19:00 | disposition home or self-care (01) ==
LOC: PT 10:00
PROVIDERS: Referring Provider Nurse Practitioner Family; Visit Provider Nurse Practitioner Family
DX: C81.18 Nodular sclerosis Hodgkin lymphoma, lymph nodes of multiple sites (principal)
CPT/HCPCS: 97161; 97530

== ENCOUNTER → 2025-08-09 | Outpatient (CLI) | payer MEDICAID, SELFPAY ==
--- NOTE | 2025-08-09 15:50 | CT_ITS ---
PROCEDURE: SOFT TISSUE NECK WITH CONTRAST 08/09/2025 REASON FOR EXAM: HODGKIN LYMPHOMA SURVEILLANCE TECHNIQUE: Procedure Code: CTNEW Modality: CT Procedure: SOFT TISSUE NECK WITH CONTRAST CONTRAST: Isovue 370 VOLUME: 100 mL One or more dose reduction techniques were used (e.g., Automated exposure control, adjustment of the mA and/or kV according to patient size, use of iterative reconstruction technique). RADIATION DOSE SUMMARY: CTDlvol: 10.96 mGy DLP: 1182.15 mGycm COMPARISON: None. FINDINGS: Airway: Midline and patent. Salivary glands: Unremarkable. Lymph nodes: No cervical lymphadenopathy. Thyroid: Unremarkable. Vasculature: Unremarkable Orbits: Unremarkable. Paranasal sinuses and mastoids: Lung apices: Clear. Upper mediastinum: Unremarkable. Bones: Acute bony abnormalities. CT/Soft Tissue Neck WITH Contrast IMPRESSION: No lymphadenopathy or other acute findings. Reading Location: [id number]
--- NOTE | 2025-08-09 15:50 | CT_ITS ---
PROCEDURE: SOFT TISSUE NECK WITH CONTRAST 08/09/2025 REASON FOR EXAM: HODGKIN LYMPHOMA SURVEILLANCE TECHNIQUE: Procedure Code: CTNEW Modality: CT Procedure: SOFT TISSUE NECK WITH CONTRAST CONTRAST: Isovue 370 VOLUME: 100 mL One or more dose reduction techniques were used (e.g., Automated exposure control, adjustment of the mA and/or kV according to patient size, use of iterative reconstruction technique). RADIATION DOSE SUMMARY: CTDlvol: 10.96 mGy DLP: 1182.15 mGycm COMPARISON: None. FINDINGS: Airway: Midline and patent. Salivary glands: Unremarkable. Lymph nodes: No cervical lymphadenopathy. Thyroid: Unremarkable. Vasculature: Unremarkable Orbits: Unremarkable. Paranasal sinuses and mastoids: Lung apices: Clear. Upper mediastinum: Unremarkable. Bones: Acute bony abnormalities. CT/Soft Tissue Neck WITH Contrast IMPRESSION: No lymphadenopathy or other acute findings. Reading Location: [id number]
--- NOTE | 2025-08-09 15:50 | CT_ITS ---
PROCEDURE: CT CHEST, ABD, PEL W/CONTRAST 08/09/2025 REASON FOR EXAM: HODGKIN LYMPHOMA SURVEILLANCE. Last chemo treatment in January. TECHNIQUE: Chest, abdomen and pelvis CT with intravenous contrast. Coronal and Sagittal reconstruction series were provided. One or more dose reduction techniques were used (e.g., Automated exposure control, adjustment of the mA and/or kV according to patient size, use of iterative reconstruction technique. CONTRAST: Isovue-300 VOLUME: 100mL RADIATION DOSE SUMMARY: CTDlvol: 15.20, 10.99, 9.03, 6.80, 10.96 mGy DLP: 1182.15 mGycm COMPARISON: PET/CT Tumor Base - Thighs, 02/14/2025 CT Thorax w/ Contrast, 06/14/2024 FINDINGS: CHEST: LUNGS: Minimal centrilobular emphysema in the upper lobes. No pulmonary mass. No focal airspace consolidation. Mild chronic parenchymal scarring in the right lung apex. Minimal dependent atelectasis bilaterally. PLEURAL SPACES: No pleural effusion. No pneumothorax. HEART: No cardiomegaly. No significant pericardial effusion. MEDIASTINUM/HILUM: Mild decrease in superior mediastinal lymphadenopathy since 02/14/2025. AORTA: No aneurysm or dissection. ESOPHAGUS: Unremarkable. SOFT TISSUES: The soft tissues are unremarkable. BONES: No acute osseous abnormality. ABDOMEN AND PELVIS: LIVER: Unremarkable. No focal lesions. GALLBLADDER: Appears to be a rim-calcified stone in the gallbladder (Se: 4, Im: 45, 46). No wall thickening. BILE DUCTS: No ductal dilation. PANCREAS: Unremarkable. SPLEEN: Unremarkable. ADRENAL GLANDS: Unremarkable. KIDNEYS: Unremarkable. No hydronephrosis or hydroureter. STOMACH AND BOWEL: No obstruction or perforation. No wall thickening. No CT evidence of colitis or acute diverticulitis. APPENDIX: Normal-appearing appendix. No CT evidence for appendicitis. RETRO/PERITONEUM: No free fluid. No free air. LYMPH NODES: No lymphadenopathy. PELVIC ORGANS: Unremarkable as visualized. VASCULATURE: No aortic aneurysm. SOFT TISSUES: The soft tissues are unremarkable. BONES: No acute osseous abnormality. CT/CT Chest, Abd, Pel w/Contrast IMPRESSION: 1. Mild interval decreased in superior mediastinal lymphadenopathy. 2. No significant lymphadenopathy or signs of metastatic disease in the abdome n or pelvis. 3. Cholelithiasis without signs of acute cholecystitis. Reading Location: [id number]
[2025-08-09 17:22] LABS: Hematocrit 40.3 % (40-54); Hemoglobin 13.2 g/dL (13.0-16.5); Immature Granulocytes Count 0.010 X10^3/uL (0.0-0.0); Mean Corp Hgb Conc 32.8 g/dL (32-36); Mean Corpuscular Volume 92.9 fL (80-94); Mean Platelet Vol. 9.5 fl (6.2-12.0); NRBC Flagged by Analyzer 0 % (0-5); Platelet Count 283 K/mm3 (150-450); RBC Distribution Width CV 14.7 % (11.6-14.6); RBC Distribution Width SD 50.9 fl (35.1-43.9); Red Blood Count 4.34 M/mm3 (4.6-6.2); White Blood Count 5.5 K/mm3 (4.4-11.0)
[2025-08-09 18:30] LABS: AST(SGOT) 19 U/L (<=37); Alanine Aminotransfer ALT/SGPT 12 U/L (<=46); Albumin, Serum 4.5 g/dL (3.5-5.0); Alkaline Phosphatase 70 U/L (40-129); Anion Gap 10 (5-15); BUN 5 mg/dL (4-19); BUN/Creat Ratio 6.4 RATIO (10-20); Calcium,Total 9.4 mg/dL (7.6-11.0); Carbon Dioxide 27.3 mmol/L (21.0-32.0); Chloride 100 mmol/L (98-108); Globulin 3.0 g/dL (2.2-4.2); Glucose 89 mg/dL (70-99); Potassium 4.2 mmol/L (3.3-5.1)
[2025-08-09 18:58] LABS: LDH 152 U/L (87-241)
[2025-08-09 19:03] LABS: CRP < 3.00 mg/L (0.0-3.0)
== END | disposition home or self-care (01) ==
PROVIDERS: Referring Provider Nurse Practitioner Family; Visit Provider Nurse Practitioner Family
DX: C81.18 Nodular sclerosis Hodgkin lymphoma, lymph nodes of multiple sites (principal)
CPT/HCPCS: 36415; 70491; 71260; 74177; 80053; 83615; 85025; 86140; Q9967